=== PATIENT | male | born 1990 | race African-American/Black ===

== ENCOUNTER 2024-07-11 18:24 | Emergency (ER) | payer OTHER, SELFPAY | END 2024-07-11 22:45 | disposition home or self-care (01) | LOC: CSHERS 18:24 | DX: J20.9 Acute bronchitis, unspecified (principal); E78.5 Hyperlipidemia, unspecified; I10 Essential (primary) hypertension; F17.210 Nicotine dependence, cigarettes, uncomplicated | CPT/HCPCS: 87428; 99283 ==